=== PATIENT | male | born 1985 | race African-American/Black ===

== ENCOUNTER 2018-06-18 19:08 | Emergency (ER) | payer SELFPAY ==
[2018-06-18] MEDS ORDERED: EPINEPHrine 1 MG/ML SDV ONE (19:13)
[2018-06-18] MEDS ORDERED: methylPREDNISolone Sodium Succinate 125 MG/2 ML SDV ONE (19:17)
[2018-06-18] MEDS ORDERED: diphenhydrAMINE 50 MG/ML SDV ONE (19:19)
--- NOTE | 2018-06-18 19:24 | EDM.PDOC ---
ED HPI GENERAL MEDICAL PROBLEM - General Chief Complaint: Allergic Reaction Stated Complaint: ALLERGIC REACTION Time Seen by Provider: 06/18/18 19:10 Source of Information: Reports: Patient, RN History Limitations: Reports: No Limitations - History of Present Illness INITIAL COMMENTS - FREE TEXT/NARRATIVE: The patient states that he is allergic to tree nuts, but that he ate some food at [employer] around 19:00 tonight that, he found out later, contained walnuts. He states that he developed tongue swelling immediately after eating the food. He denies having any shortness of breath or wheezing. He states that he has a tingling sensation around his face, but no pruritus elsewhere, and he has not noticed any urticaria. He states that he has had similar reactions in the past, after eating tree nuts, and he has been treated with medications, although he has never required intubation. The patient has not taken any medication to treat his current symptoms. The patient denies having any gastrointestinal symptoms, such as nausea or GERD. The patient does not have a PCP. - Related Data Allergies Allergy/AdvReac Type Severity Reaction Status Date / Time shellfish derived Allergy Anaphylactic Verified 06/18/18 19:16 Shock tree nut Allergy Anaphylactic Verified 06/18/18 19:16 Shock Home Meds: Home Meds . [No Known Home Meds] 06/18/18 [History] Past Medical History - Past Surgical History GI Surgical History: Reports: Hernia, Inguinal (right) Musculoskeletal Surgical History: Reports: Other (See Below) (Left hammertoe repair) Social & Family History - Tobacco Use Smoking Status *Q: Never Smoker - Alcohol Use Alcohol Use History: Yes Alcohol Use Frequency: Socially - Recreational Drug Use Recreational Drug Use: No - Living Situation & Occupation Living situation: Reports: Single, with Significant Other (Girlfriend) Occupation: Employed (Medicinal Chemist) ED ROS ALLERGIC REACTION - Review of Systems Review Of Systems: ROS reveals no pertinent complaints other than HPI. ED EXAM GENERAL NO PERIP PULSE - Physical Exam Exam: See Below Exam Limited By: No Limitations General Appearance: Alert, WD/WN, No Apparent Distress Eye Exam: Bilateral Eye: EOMI, Normal Inspection Ears: Normal External Exam, Normal Canal, Hearing Grossly Normal, Normal TMs Nose: Normal Inspection, Normal Mucosa, No Blood Throat/Mouth: Normal Teeth, Normal Gums, No Airway Compromise, Other ( Significantly swollen tongue, although the patient is able to close his mouth without tongue protrusion. Subtle, if any, lip swelling.) Head: Atraumatic, Normocephalic Neck: Normal Inspection, Supple, Non-Tender, Full Range of Motion Respiratory/Chest: No Respiratory Distress, Lungs Clear, Normal Breath Sounds, No Accessory Muscle Use. No: Wheezing, Stridor Cardiovascular: Normal Peripheral Pulses, Regular Rate, Rhythm, No Edema, No Gallop, No JVD, No Murmur, No Rub GI/Abdominal: Normal Bowel Sounds, Soft, Non-Tender, No Organomegaly, No Distention, No Abnormal Bruit, No Mass (Male) Exam: Deferred Rectal (Males) Exam: Deferred Back Exam: Normal Inspection, Full Range of Motion, NT Extremities: Normal Inspection, Normal Range of Motion, No Pedal Edema, Normal Capillary Refill Neurological: Alert, Oriented, Normal Cognition, No Motor/Sensory Deficits Psychiatric: Normal Affect Skin Exam: Warm, Dry, Intact, Normal Color, No Rash Lymphatic: No Adenopathy Course - Vital Signs Last Recorded V/S: Last Vital Signs Temp 36.6 C 06/18/18 19:16 Pulse 74 06/18/18 19:16 Resp 18 06/18/18 19:16 BP 122/80 06/18/18 19:16 Pulse Ox 100 06/18/18 19:16 - Orders/Labs/Meds Meds: Medications Discontinued Medications Generic Name Dose Route Start Last Admin Trade Name Christoferq PRN Reason Stop Dose Admin Diphenhydramine HCl Confirm 06/18/18 19:19 06/18/18 19:52 Benadryl Administered 06/18/18 19:20 Not Given Dose 50 mg .ROUTE .STK-MED ONE Diphenhydramine HCl 50 mg 06/18/18 19:51 06/18/18 19:53 Benadryl IVPUSH 06/18/18 19:52 50 mg ONETIME ONE Administration Epinephrine HCl Confirm 06/18/18 19:13 06/18/18 19:52 Adrenalin Administered 06/18/18 19:14 Not Given Dose 1 mg .ROUTE .STK-MED ONE Epinephrine HCl 0.3 mg 06/18/18 19:51 06/18/18 19:53 Adrenalin SUBCUT 06/18/18 19:52 0.3 mg ONETIME ONE Administration Methylprednisolone Sodium Succinate Confirm 06/18/18 19:17 06/18/18 19:52 Solu-Medrol Administered 06/18/18 19:18 Not Given Dose 125 mg .ROUTE .STK-MED ONE Methylprednisolone Sodium Succinate 125 mg 06/18/18 19:51 06/18/18 19:53 Solu-Medrol IVPUSH 06/18/18 19:52 125 mg ONETIME ONE Administration - Re-Assessments/Exams Free Text/Narrative Re-Assessment/Exam: 06/18/18 19:23 The patient has been given 0.3 mg SQ epinephrine, 125 mg IV Solu-Medrol, and 50 mg IV diphenhydramine. At present, the patient feels that his tongue may be slightly improving in size, and there is subtle visible improvement. 06/18/18 19:48 The patient has been examined several times. His tongue is still enlarged, although not quite as enlarged as when I originally examined him. He states that he feels all right, and that he is able to swallow. His examination remains without stridor or wheezing, and no rash has developed. At this time, I have asked the nurse to provide the patient with some ice chips, as the cold may help to expedite the reduction in swelling of his tongue. I do not want him to eat, however. 06/18/18 20:14 The patient was again examined. He states that he is feeling better, although he states that the Benadryl is making him feel sleepy. His tongue is definitely smaller than when I originally evaluated him, but is still enlarged, and I'm not comfortable discharging him home yet. 06/18/18 21:02 The patient was reexamined. His tongue swelling has noticeably decreased. The patient states that it feels like it is now a "7", down from a "10" previously. He states that he is able to swallow without difficulty. He denies having any pain or pruritus. His lungs remain clear, without stridor. 06/18/18 21:42 The patient continues to feel well. He is able to swallow without any difficulty , and has no difficulty with breathing. He feels well enough to go home. On examination, his tongue is still enlarged, although it has improved from when he first arrived. He states that he lives here in [place], and can return if his symptoms worsen. I'm comfortable letting the patient go home. Departure - Departure Time of Disposition: 21:46 Disposition: Home, Self-Care 01 Condition: Good Clinical Impression: Glossal swelling, Allergic reaction to food - Discharge Information *PRESCRIPTION DRUG MONITORING PROGRAM REVIEWED*: Not Applicable *COPY OF PRESCRIPTION DRUG MONITORING REPORT IN PATIENT ERIKA: Not Applicable Instructions: Food Allergy, [id number] Referrals: PCP,None [Primary Care Provider] - Forms: ED Department Discharge Additional Instructions: You were seen in the emergency room for tongue swelling after you ate some food containing walnuts. You were given epinephrine, IV Solu-Medrol, and IV Benadryl in the ER, with improvement of your symptoms. If your symptoms worsen, please return to the ER immediately. If you are having difficulty breathing, call 911.
[2018-06-18] MEDS ORDERED: methylPREDNISolone Sodium Succinate 125 MG/2 ML SDV IVPUSH ONE (19:51)
[2018-06-18] MEDS ORDERED: EPINEPHrine 1 MG/ML SDV SUBCUT ONE (19:51)
[2018-06-18] MEDS ORDERED: diphenhydrAMINE 50 MG/ML SDV IVPUSH ONE (19:51)
== END 2018-06-18 22:05 | disposition home or self-care (01) ==
LOC: JD.ED 19:08
DX: T78.1XXA Other adverse food reactions, not elsewhere classified, initial encounter (principal); R22.0 Localized swelling, mass and lump, head; Z91.013 Allergy to seafood; Z91.018 Allergy to other foods
CPT/HCPCS: 96372; 96374; 96375; 99284; J0171; J1200; J2930